=== PATIENT | male | born 1985 | race Hispanic/Latino ===

== ENCOUNTER → 2021-03-23 | Emergency (ER) | payer BC ==
[~2021-03-23] VITALS: Ht 180.3 cm; Wt 122.5 kg
[~2021-03-23] MED LIST: ACETAMINOPHEN 325 MG TAB PO ONE; CEFDINIR300 MG PO; IBUPROFEN IB200 MG PO; ONDANSETRON HCL 4 MG ORAL DISINTEGRATING TAB PO ONE; ONDANSETRON ODT4 MG PO; THERAFLU FLU &1 EAC1 PO
[2021-03-23 22:59] VITALS: BP 115/74
== END | disposition home or self-care (01) ==
LOC: FSED 20:39
DX: U07.1 COVID-19 (principal); J18.9 Pneumonia, unspecified organism; R50.9 Fever, unspecified; R05 Cough; R11.2 Nausea with vomiting, unspecified; R53.81 Other malaise
CPT/HCPCS: 71046; 87400; 99283; Q0162

== ENCOUNTER 2025-06-17 18:57 | Emergency (ER) | payer SELFPAY ==
[~2025-06-17] VITALS: Ht 180.3 cm; Wt 136.5 kg
[~2025-06-17 18:57] MED LIST changes: -ACETAMINOPHEN 325 MG TAB PO ONE; -ONDANSETRON HCL 4 MG ORAL DISINTEGRATING TAB PO ONE
[2025-06-17] MEDS: ONDANSETRON HCL 4 MG ORAL DISINTEGRATING TAB PO ONE (20:18)
[2025-06-17] MEDS: ALBUTEROL/IPRATROPIUM 3 ML NEB NEB ONE (20:18)
[2025-06-17] MEDS: IBUPROFEN 600 MG TAB PO STA (20:19)
[2025-06-17] MEDS: AZITHROMYCIN 250 MG TAB PO ONE (20:49)
[2025-06-17] MEDS ORDERED: ZITHROMAX250 MG PO (21:54)
[2025-06-17] MEDS ORDERED: PAXLOVID 300-11 EAC1 PO (21:54)
[2025-06-17] MEDS ORDERED: ONDANSETRON ODT4 MG PO (21:54)
[2025-06-17 22:10] VITALS: BP 135/73; PULSE 117; PULSE 118; RESP 18; TEMP 99.3; O2SAT 96
== END 2025-06-17 22:10 | disposition home or self-care (01) ==
LOC: FSED 19:57
DX: R50.9 Fever, unspecified (principal); U07.1 COVID-19; J02.0 Streptococcal pharyngitis; E86.0 Dehydration; J45.909 Unspecified asthma, uncomplicated
CPT/HCPCS: 0223U; 71046; 83518; 87400; 99283; Q0162